=== PATIENT | male | born 1975 ===

== ENCOUNTER 2017-07-31 14:45 | Emergency (ER) | payer OTHER ==
[2017-07-31 14:57] VITALS: TEMP 98.2
--- NOTE | 2017-07-31 16:28 | C.PDOC ---
History Of Present Illness 42-year-old male, presents to the emergency department for evaluation of left ankle pain and swelling that was sustained a few hours prior to arrival, after twisting injury. Patient states pain is localized over lateral malleolus, and worse with ambulation. No weakness, deformity, sensory/vascular deficit. No other complaints at this time. Time Seen by Provider: 07/31/17 15:15 Chief Complaint (Nursing): Lower Extremity Problem/Injury History Per: Patient History/Exam Limitations: no limitations Current Symptoms Are (Timing): Still Present Past Medical History Reviewed: Historical Data, Nursing Documentation, Vital Signs Vital Signs: Last Vital Signs Temp 98.2 F 07/31/17 14:54 Pulse 75 07/31/17 16:46 Resp 18 07/31/17 16:46 BP 118/70 07/31/17 16:46 Pulse Ox 99 07/31/17 16:46 Family History: States: No Known Family Hx - Social History Hx Alcohol Use: No Hx Substance Use: No Review Of Systems Musculoskeletal: Positive for: Foot Pain Neurological: Negative for: Weakness, Numbness Physical Exam - Physical Exam Appears: Well, Non-toxic, No Acute Distress Skin: Normal Color, Warm, Ecchymosis Head: Atraumatic, Normacephalic Eye(s): bilateral: PERRL Neck: Supple Extremity: Normal ROM (discomfort to letf ankle felxion/extension due to pain), Tenderness (Left ankle over lateral malleolus with mod edema. No defomrity, no neurovascular deficits.), Capillary Refill (less than 2sec to left foot), No Deformity Neurological/Psych: Oriented x3, Normal Speech, Normal Motor, Normal Sensation, Normal Reflexes ED Course And Treatment O2 Sat by Pulse Oximetry: 100 (RA) Pulse Ox Interpretation: Normal - Other Rad Left tib/fin X-Ray: Interpreted by Me, Viewed By Me Interpretation: (-) acute fx left ankle/foot X-Ray: Interpreted by Me, Viewed By Me Interpretation: no acute fx or dislocation Progress Note: On re-eval, pt is afebrile, hemodynamicaly stable. Non-toxic. Left ankle; exam c/w lateral malleolus edema and tenderness. No deformity, no neurovascular deficits. Imaging review (-) acute fx or dislocatin. Air cast applied to left ankle. Crutchyes provided with instruction. Pt has clinical findings c/w ankle sprain. Pt advised and ref. to f/u with podiatry in 2-3 days for re-eavl. return if any new changes. Disposition Counseled Patient/Family Regarding: Diagnosis, Need For Followup, Rx Given - Disposition Referrals: Brennen Hartley MD [Staff Provider] - [facility] [Outside] Podiatry Clinic [Outside] Disposition: HOME/ ROUTINE Disposition Time: 16:26 Condition: STABLE Additional Instructions: RICE-REST, ICE, COMPRESSION ( SPLINT), ELEVATION FOR 3-4 DAYS TAKE PAIN MEDICATION NEED FOLLOW UP WITH PODIATRY CLINIC ON THURSDAY FROM NOON- 4PM FOR RE-EVALUATION. RETURN TO ED IF ANY NEW CHANGES. Instructions: Ankle Sprain Forms: [facility] (Kinyarwanda), Work Excuse Print Language: MOHAWK - Clinical Impression Clinical Impression: Ankle sprain - Scribe Statement The provider has reviewed the documentation as recorded by the Scribe (Edelmira Diaz) All medical record entries made by the Scribe were at my direction and personally dictated by me. I have reviewed the chart and agree that the record accurately reflects my personal performance of the history, physical exam, medical decision making, and the department course for this patient. I have also personally directed, reviewed, and agree with the discharge instructions and disposition.
--- NOTE | 2017-07-31 16:36 | RAD ---
PROCEDURE: Left Ankle Radiographs. HISTORY: injury COMPARISON: None FINDINGS: BONES: Normal. No fracture. JOINTS: Normal. No osteoarthritis. Ankle mortise maintained. Talar dome intact SOFT TISSUES: Lateral soft tissue swelling indicating possible ligamentous injury. OTHER FINDINGS: None. IMPRESSION: No acute fracture. Lateral soft tissue swelling. No additional abnormality.
--- NOTE | 2017-07-31 16:37 | RAD ---
PROCEDURE: Left Foot Radiographs. HISTORY: injury COMPARISON: None. FINDINGS: BONES: Normal. No fracture. JOINTS: Normal. SOFT TISSUES: Normal. OTHER FINDINGS: None. IMPRESSION: Normal left foot radiographs.
--- NOTE | 2017-07-31 16:37 | RAD ---
PROCEDURE: Radiographs of the left tibia and fibula. HISTORY: injury COMPARISON: None available. TECHNIQUE: Frontal and lateral views obtained. FINDINGS: BONES: No fracture or destructive lesion. JOINT SPACES: Unremarkable. OTHER FINDINGS: None. IMPRESSION: Unremarkable radiographs of the left tibia and fibula.
[2017-07-31 16:46] VITALS: BP 118/70; PULSE 75; RESP 18
[2017-07-31 17:46] VITALS: O2SAT 100
== END 2017-07-31 16:59 | disposition home or self-care (01) ==
LOC: C.ER 14:45
DX: S93.402A Sprain of unspecified ligament of left ankle, initial encounter (principal); X50.1XXA Overexertion from prolonged static or awkward postures, initial encounter